=== PATIENT | female | born 1980 | race African-American/Black ===

== ENCOUNTER 2017-03-10 17:44 | Emergency (ER) | payer MEDICAID ==
[~2017-03-10] VITALS: Ht 167.6 cm; Wt 61.2 kg
[2017-03-11 00:40] VITALS: BP 126/85
== END 2017-03-11 00:56 | disposition home or self-care (01) ==
LOC: ER 17:53
DX: O26.891 Other specified pregnancy related conditions, first trimester (principal); M25.512 Pain in left shoulder; R42 Dizziness and giddiness; R06.02 Shortness of breath; M54.2 Cervicalgia; Z88.0 Allergy status to penicillin; V43.62XA Car passenger injured in collision with other type car in traffic accident, initial encounter; Y93.89 Activity, other specified; Y99.8 Other external cause status; Y92.89 Other specified places as the place of occurrence of the external cause
CPT/HCPCS: 70450; 71010; 72125; 73030